=== PATIENT | female | born 1950 | race Caucasian/White ===

== ENCOUNTER 2024-03-07 09:02 | Day surgery (SDC) | payer OTHER ==
[~2024-03-07 09:02] MED LIST: Sodium Chloride 0.9% 10 ML Syringe FLUSH PRN
[2024-03-07] MEDS ORDERED: Propofol 200 MG/20 ML SDV IV ONE (09:03)
[2024-03-07] MEDS ORDERED: ePHEDrine 50 MG/ML SDV IV ONE (09:03)
[2024-03-07] MEDS ORDERED: Midazolam 1 MG/ML 2 ML SDV ONE (09:12)
[2024-03-07] MEDS ORDERED: Propofol 200 MG/20 ML SDV ONE ×3 (09:12→11:09)
[2024-03-07] MEDS: Lactated Ringers 1,000 ML IV SCH (10:15)
[2024-03-07] MEDS ORDERED: Lactated Ringers 1,000 ML ONE (10:55)
[2024-03-07 14:32] VITALS: BP 115/85; PULSE 77
== END 2024-03-07 14:08 | disposition home or self-care (01) ==
LOC: KA.SDS 09:02
PROVIDERS: ATTEND Family Medicine
DX: Z12.11 Encounter for screening for malignant neoplasm of colon (principal); D12.0 Benign neoplasm of cecum; D12.2 Benign neoplasm of ascending colon; D12.3 Benign neoplasm of transverse colon; D12.5 Benign neoplasm of sigmoid colon; R19.5 Other fecal abnormalities; K57.30 Diverticulosis of large intestine without perforation or abscess without bleeding; I10 Essential (primary) hypertension; E78.00 Pure hypercholesterolemia, unspecified; E66.3 Overweight; E80.6 Other disorders of bilirubin metabolism; E87.6 Hypokalemia; F41.9 Anxiety disorder, unspecified; F33.9 Major depressive disorder, recurrent, unspecified; G89.29 Other chronic pain; M54.41 Lumbago with sciatica, right side; M54.42 Lumbago with sciatica, left side; M25.561 Pain in right knee; M25.562 Pain in left knee; Z79.899 Other long term (current) drug therapy; Z68.27 Body mass index [BMI] 27.0-27.9, adult
CPT/HCPCS: 00811; 99100; J2250; J2704; J3490; J7120